=== PATIENT | female | born 1970 | race Caucasian/White ===

== ENCOUNTER 2017-08-04 17:43 | Emergency (ER) | payer MEDICAID ==
[2017-08-04 18:06] VITALS: BP 111/74; RESP 16; TEMP 98; O2SAT 97
--- NOTE | 2017-08-04 18:47 | ED PDOC ---
HPI: Back Time Seen by Provider: 08/04/17 18:29 Chief Complaint (Nursing): Back Pain Chief Complaint (Provider): Neck Pain History Per: Patient History/Exam Limitations: no limitations Onset/Duration Of Symptoms: Days (x4) Current Symptoms Are (Timing): Still Present Additional Complaint(s): 47 y/o female presents to the ER complaining of atraumatic neck pain for the past 4 days, progressively worsening. States pain has begun to radiate down both arms, left > right. Pain radiates all the way to her fingers on the left hand, and to her shoulder on the right. Patient has had similar neck pain in the past and sees a chiropractor for adjustments. Also has a history of disc problems in the lower back but has not had imaging of her neck. Denies any trauma, fever, chest pain, shortness of breath, or weakness. Of note, patient has been taking Mobic and Flexeril, which she usually takes for her lower back pain. Last dose of these meds was last night. She reports neck pain is increased with left shoulder movement. PMD: Ray Longoria Past Medical History Reviewed: Historical Data, Nursing Documentation, Vital Signs Vital Signs: Last Vital Signs Temp 98.0 F 08/04/17 18:03 Pulse 86 08/04/17 18:03 Resp 16 08/04/17 18:03 BP 111/74 08/04/17 18:03 Pulse Ox 97 08/04/17 18:03 - Medical History PMH: Back Problems (disc disease at lumbar spine), Diabetes - Family History Family History: Denies: Stroke, [place], CAD - Social History Current smoker - smoking cessation education provided: No Ex-Smoker (has not smoked in the last 12 months): No Drugs: Denies - Home Medications Home Medications: Ambulatory Orders Medication Instructions Recorded Methocarbamol [Robaxin] 500 mg PO TID PRN #15 tab 08/04/17 - Allergies Allergies/Adverse Reactions: Allergies Allergy/AdvReac Type Severity Reaction Status Date / Time No Known Allergies Allergy Verified 08/04/17 18:03 Review of Systems ROS Statement: Except As Marked, All Systems Reviewed And Found Negative Constitutional: Negative for: Fever Cardiovascular: Negative for: Chest Pain Respiratory: Negative for: Shortness of Breath Musculoskeletal: Positive for: Neck Pain (radiating down right shoulder and all the way to left fingers) Neurological: Negative for: Weakness, Numbness Physical Exam - Reviewed Nursing Documentation Reviewed: Yes Vital Signs Reviewed: Yes - Physical Exam Appears: Positive for: Well, Non-toxic, In Acute Distress (mild painful distress ) Head Exam: Positive for: ATRAUMATIC, NORMOCEPHALIC Skin: Positive for: Normal Color, Warm Eye Exam: Positive for: Normal appearance ENT: Positive for: Normal ENT Inspection Neck: Positive for: Limited ROM (with moderate paracervical tenderness and trapezius tenderness bilaterally. No c-spine tenderness) Cardiovascular/Chest: Positive for: Regular Rate, Rhythm. Negative for: Murmur Respiratory: Positive for: Normal Breath Sounds. Negative for: Accessory Muscle Use, Respiratory Distress Pulses-Radial (L): 2+ Pulses-Radial (R): 2+ Back: Positive for: Normal Inspection. Negative for: L CVA Tenderness, R CVA Tenderness, Vertebral Tenderness Extremity: Positive for: Other (Equal automotive worker strength bilaterally. Limited rom of left shoulder secondary to pain) Neurologic/Psych: Positive for: Alert, Oriented - ECG ECG: Positive for: Interpreted By Me ECG Rhythm: Positive for: Sinus Rhythm. Negative for: ST/T Changes Rate: 77 O2 Sat by Pulse Oximetry: 97 (RA) Pulse Ox Interpretation: Normal - Radiology X-Ray: Interpreted by Me (C-spine x-ray) X-Ray Interpretation: No Acute Disease - Progress Re-evaluation Time: 20:55 Condition: Re-examined, Improving,but remains with symptoms Medical Decision Making Medical Decision Making: Time: 18:38 Plan: * EKG * Toradol 30 mg IM * Valium 10 mg PO * x-ray cervical spine Scribe Attestation: Documented by Coleen Yeung, acting as a scribe for Antonino Rush PA-C Provider Scribe Attestation: All medical record entries made by the Scribe were at my direction and personally dictated by me. I have reviewed the chart and agree that the record accurately reflects my personal performance of the history, physical exam, medical decision making, and the department course for this patient. I have also personally directed, reviewed, and agree with the discharge instructions and disposition. Disposition - Clinical Impression Clinical Impression: Cervical radiculopathy - Patient ED Disposition Is Patient to be Admitted: No - Disposition Referrals: [facility] [Outside] [facility] [Outside] Disposition: Routine/Home Disposition Time: 21:01 Condition: IMPROVED Additional Instructions: Continue Mobic. Follow up with PMD for further evaluation. Prescriptions: Methocarbamol [Robaxin] 500 mg PO TID PRN #15 tab PRN Reason: Muscle Spasm Instructions: Radiculopathy (DC) Forms: [employer] (Gabonese) Print Language: AZERI
[2017-08-04 19:04] VITALS: PULSE 77
--- NOTE | 2017-08-04 23:25 | RAD ---
PROCEDURE: Cervical Spine Radiographs. HISTORY: Pain. COMPARISON: None. FINDINGS: BONES: Subtle straightening of the cervical curvature without fracture or spondylolisthesis appreciated. No suspicious destructive bony lesion appreciated. Facet joints appear intact as well as remaining posterior elements. C1-2 articulation appears unremarkable swells craniocervical junction. Prevertebral paraspinal soft tissues appear diffusely unremarkable. If symptoms persist or worsen follow-up MRI or CT advised. DISC SPACES: As above SOFT TISSUES: As above OTHER FINDINGS: None. IMPRESSION: Straightening of the cervical curvature without fracture or spondylolisthesis identified. If symptoms persist or worsen follow-up CT or MRI advised.
--- NOTE | 2017-08-05 18:06 | CARD ---
APPROVED REPORT EKG Measurement Heart [id number] <Conclusion> Normal sinus rhythm Low voltage QRS Borderline ECG
== END 2017-08-04 21:10 | disposition home or self-care (01) ==
LOC: H.ER 17:43
DX: M54.12 Radiculopathy, cervical region (principal); E11.9 Type 2 diabetes mellitus without complications; Z87.891 Personal history of nicotine dependence
CPT/HCPCS: 72040; 81025; 93005; 96372; 99281; J1885